=== PATIENT | male | born 1950 | race African-American/Black ===

== ENCOUNTER 2021-02-08 06:47 | Observation (INO) | payer OTHER ==
[2021-02-08 08:30] VITALS: BMI 25.0
[2021-02-08] MEDS ORDERED: metoPROLOL SUCCINATE 25 MG TAB.SR.24H (FP) PO SCH (10:00)
[2021-02-08 10:55] LABS: INR 1.27 (0.83-1.09); PROTHROMBIN TIME (PATIENT) 14.9 SEC (9.7-13.0)
[2021-02-08 10:58] LABS: ACTIVATED PTT 32.8 SECONDS (25.2-36.5)
[2021-02-08 11:07] LABS: CHLORIDE 110 mmol/L (98-107); HEMATOCRIT 34.1 % (35.4-49); MCH 28.6 pg (25.7-33.7); MCHC 32.2 g/dl (32.0-35.9); MEAN PLT VOLUME 9.9 fl (7.5-11.1); PLATELET COUNT 178 10^3/uL (134-434); RBC 3.83 M/mm3 (4.00-5.60); RDW 14.5 % (11.9-15.9); SODIUM 141 mmol/L (136-145); WHITE BLOOD COUNT 3.2 K/mm3 (4.0-10.0)
[2021-02-08 11:09] LABS: ALBUMIN 3.5 g/dl (3.4-5.0); ANION GAP 7 MMOL/L (8-16); BLOOD UREA NITROGEN 9.7 mg/dL (7-18); CALCIUM 8.8 mg/dL (8.5-10.1); CO2 24 mmol/L (21-32); GLUCOSE,RANDOM 89 mg/dL (74-106)
[2021-02-08 11:10] LABS: MAGNESIUM 2.3 mg/dL (1.8-2.4)
[2021-02-08 11:13] LABS: CREATININE 1.1 mg/dL (0.55-1.3); SGOT/AST 22 U/L (15-37); SGPT/ALT 23 U/L (13-61)
[2021-02-08 11:14] LABS: BILIRUBIN,TOTAL 0.6 mg/dL (0.2-1); TOT PROT 7.7 g/dl (6.4-8.2)
[2021-02-08 11:15] LABS: ALK PHOS 69 U/L (45-117)
[2021-02-08 11:44] LABS: ANISOCYTOSIS 0; MACROCYTOSIS 0; PLATELET ESTIMATE NORMAL
[2021-02-08 12:03] LABS: URINE COLOR RED
[2021-02-08 12:04] LABS: URINE APPEARANCE BLOODY; URINE GLUCOSE (UA) NEGATIVE (NEGATIVE)
[2021-02-08 12:05] LABS: URINE BILIRUBIN 2+ (NEGATIVE); URINE UROBILINOGEN 0.2 mg/dL (0.2-1.0)
[2021-02-08 12:07] LABS: URINE BACTERIA RARE /uL (0-1359); URINE PROTEIN 2+ (NEGATIVE); URINE RBC >200 /uL (0-23.9)
[2021-02-08] MEDS ORDERED: metoPROLOL SUCCINATE 25 MG TAB.SR.24H (FP) ONE (14:49)
[2021-02-08] MEDS: metoPROLOL SUCCINATE 25 MG TAB.SR.24H (FP) PO SCH (14:54)
[2021-02-08] MEDS ORDERED: ATORVASTATIN CA 20 MG TABLET (FP) ONE (21:25)
[2021-02-08] MEDS: ATORVASTATIN CA 20 MG TABLET (FP) PO SCH (21:38)
[2021-02-08] MEDS ORDERED: APIXABAN 5 MG TABLET PO SCH (22:00)
[2021-02-09] MEDS ORDERED: TAMSULOSIN HCL 0.4 MG CAP PO SCH (08:30)
[2021-02-09] MEDS ORDERED: TAMSULOSIN HCL 0.4 MG CAP ONE (08:37)
[2021-02-09] MEDS ORDERED: amLODIPine BESYLATE 5 MG TABLET (FP) ONE (09:32)
[2021-02-09] MEDS ORDERED: PANTOPRAZOLE 40 MG TABLET ONE (09:32)
[2021-02-09] MEDS ORDERED: metoPROLOL SUCCINATE 25 MG TAB.SR.24H (FP) ONE (09:37)
[2021-02-09] MEDS: metoPROLOL SUCCINATE 25 MG TAB.SR.24H (FP) PO SCH (09:39)
[2021-02-09] MEDS ORDERED: amLODIPine BESYLATE 5 MG TABLET (FP) PO SCH (10:00)
[2021-02-09] MEDS ORDERED: PANTOPRAZOLE 40 MG TABLET PO SCH (10:00)
[2021-02-09 15:33] LABS: HEMATOCRIT 34.5 % (35.4-49); HEMOGLOBIN 11.1 GM/dL (11.7-16.9); MCHC 32.3 g/dl (32.0-35.9); MEAN CELL VOLUME 89.7 fl (80-96); MEAN PLT VOLUME 9.5 fl (7.5-11.1); PLATELET COUNT 211 10^3/uL (134-434); RBC 3.85 M/mm3 (4.00-5.60); RDW 14.8 % (11.9-15.9); WHITE BLOOD COUNT 2.4 K/mm3 (4.0-10.0)
[2021-02-09 15:54] LABS: BLOOD UREA NITROGEN 11.8 mg/dL (7-18); CALCIUM 8.8 mg/dL (8.5-10.1)
[2021-02-09 15:55] LABS: ANISOCYTOSIS 1+; MACROCYTOSIS 0; PLATELET ESTIMATE NORMAL
[2021-02-09 15:58] LABS: CREATININE 1.3 mg/dL (0.55-1.3)
[2021-02-09 16:46] VITALS: TEMP 98.4
[2021-02-09] MEDS ORDERED: ATORVASTATIN CA 20 MG TABLET (FP) ONE (21:18)
[2021-02-09] MEDS: ATORVASTATIN CA 20 MG TABLET (FP) PO SCH (21:24)
[2021-02-10 06:53] VITALS: BP 125/80; PULSE 66
[2021-02-10] MEDS ORDERED: amLODIPine BESYLATE 5 MG TABLET (FP) ONE (11:33)
[2021-02-10] MEDS ORDERED: TAMSULOSIN HCL 0.4 MG CAP ONE (11:33)
[2021-02-10] MEDS ORDERED: PANTOPRAZOLE 40 MG TABLET ONE (11:33)
== END 2021-02-10 14:00 | disposition home or self-care (01) ==
LOC: JER 06:47 → UNDOADMOB 11:50 → JERBED 11:50 → INTOOBSV 14:13 → OBSVTOIN 14:13 → JERBED 02-10 08:51
PROVIDERS: ATTEND Family Medicine
DX: R31.0 Gross hematuria (principal); I48.0 Paroxysmal atrial fibrillation; N40.0 Benign prostatic hyperplasia without lower urinary tract symptoms; Z79.01 Long term (current) use of anticoagulants; I10 Essential (primary) hypertension; E78.5 Hyperlipidemia, unspecified
CPT/HCPCS: 36415; 71046-TC-FY; 78452-TC; 80048; 80053; 81003; 82550; 82553; 83735; 84484; 85025; 85610; 85730; 87086; 93005; 93010; 93017; 99285-25; A9502; C9803; G0378; U0003; U0005

== ENCOUNTER 2022-03-14 09:18 | Observation (INO) | payer OTHER ==
[2022-03-14 11:20] LABS: HEMATOCRIT 40.3 % (35.4-49); HEMOGLOBIN 14.3 GM/dL (11.7-16.9); MCHC 35.4 g/dl (32.0-35.9); MEAN CELL VOLUME 93.3 fl (80-96); MEAN PLT VOLUME 9.1 fl (7.5-11.1); PLATELET COUNT 243 10^3/uL (134-434); RBC 4.32 M/mm3 (4.00-5.60); RDW 13.5 % (11.9-15.9); WHITE BLOOD COUNT 2.1 K/mm3 (4.0-10.0)
[2022-03-14 11:30] LABS: INR 1.14 (0.83-1.09); PROTHROMBIN TIME (PATIENT) 13.2 SEC (9.7-13.0)
[2022-03-14 11:31] LABS: CHLORIDE 107 mmol/L (98-107); SODIUM 142 mmol/L (136-145)
[2022-03-14 11:33] LABS: CALCIUM 8.9 mg/dL (8.5-10.1)
[2022-03-14 11:34] LABS: ALBUMIN 3.6 g/dl (3.4-5.0); ANION GAP 8 MMOL/L (8-16); BLOOD UREA NITROGEN 13.4 mg/dL (7-18); CO2 27 mmol/L (21-32); GLUCOSE,RANDOM 109 mg/dL (74-106)
[2022-03-14 11:37] LABS: SGOT/AST 25 U/L (15-37); SGPT/ALT 31 U/L (13-61)
[2022-03-14 11:38] LABS: BILIRUBIN,TOTAL 0.4 mg/dL (0.2-1); TOT PROT 7.6 g/dl (6.4-8.2)
[2022-03-14 11:40] LABS: ALK PHOS 65 U/L (45-117)
[2022-03-14 11:42] LABS: N-TERMINAL BNP 53.3 pg/ml (5-125)
[2022-03-14 12:30] LABS: ANISOCYTOSIS 0; HELMET CELLS 0; HOWELL-JOLLY BODIES 0; MACROCYTOSIS 0; OVALOCYTE 0; ROULEAU 0; SICKELED CELLS 0; TARGET CELLS 0; TEAR DROP CELLS 0; TOXIC GRANULATION 0
[2022-03-14 13:38] LABS: PH,URINE 6.5 (5.0-8.0); URINE APPEARANCE CLEAR; URINE BILIRUBIN NEGATIVE (NEGATIVE); URINE COLOR YELLOW; URINE GLUCOSE (UA) NEGATIVE (NEGATIVE); URINE KETONE NEGATIVE (NEGATIVE); URINE LEUK ESTERASE NEGATIVE (NEGATIVE); URINE NITRITE NEGATIVE (NEGATIVE); URINE PROTEIN NEGATIVE (NEGATIVE); URINE UROBILINOGEN 0.2 mg/dL (0.2-1.0)
[2022-03-14] MEDS ORDERED: NITROGLYCERIN SUBLINGUAL 1/150 0.4 MG TAB SL PRN (14:46)
[2022-03-14] MEDS ORDERED: ASPIRIN COATED 81 MG TABLET.EC ONE (18:26)
[2022-03-14] MEDS: ASPIRIN COATED 81 MG TABLET.EC PO SCH (18:32)
[2022-03-14] MEDS: metoPROLOL SUCCINATE 25 MG TAB.SR.24H (FP) PO SCH (18:33)
[2022-03-14] MEDS ORDERED: HEPARIN NA (PORCINE) 5,000 UNITS/ML 1ML VIAL ONE (21:53)
[2022-03-14] MEDS ORDERED: ATORVASTATIN CA 10 MG TABLET (FP) ONE (21:53)
[2022-03-14] MEDS: ATORVASTATIN CA 10 MG TABLET (FP) PO SCH (22:00)
[2022-03-14] MEDS: HEPARIN NA (PORCINE) 5,000 UNITS/ML 1ML VIAL SQ SCH (22:00)
[2022-03-14 22:37] VITALS: BMI 24.8
[2022-03-15 08:07] LABS: HEMATOCRIT 38.7 % (35.4-49); HEMOGLOBIN 13.7 GM/dL (11.7-16.9); MCH 32.9 pg (25.7-33.7); MCHC 35.3 g/dl (32.0-35.9); MEAN CELL VOLUME 93.3 fl (80-96); MEAN PLT VOLUME 9.6 fl (7.5-11.1); PLATELET COUNT 231 10^3/uL (134-434); RBC 4.15 M/mm3 (4.00-5.60); RDW 13.4 % (11.9-15.9)
[2022-03-15 08:24] LABS: CALCIUM 8.7 mg/dL (8.5-10.1)
[2022-03-15 08:25] LABS: BLOOD UREA NITROGEN 15.3 mg/dL (7-18)
[2022-03-15] MEDS: ASPIRIN COATED 81 MG TABLET.EC PO SCH (09:23)
[2022-03-15] MEDS: metoPROLOL SUCCINATE 25 MG TAB.SR.24H (FP) PO SCH (09:23)
[2022-03-15] MEDS: amLODIPine BESYLATE 10 MG TABLET (FP) PO SCH (09:23)
[2022-03-15] MEDS: HEPARIN NA (PORCINE) 5,000 UNITS/ML 1ML VIAL SQ SCH ×2 (09:23→21:43)
[2022-03-15 09:25] LABS: ANISOCYTOSIS 0; HELMET CELLS 0; HOWELL-JOLLY BODIES 0; MACROCYTOSIS 0; OVALOCYTE 0; ROULEAU 0; SICKELED CELLS 0; TARGET CELLS 0; TEAR DROP CELLS 0; TOXIC GRANULATION 0
[2022-03-15] MEDS: ATORVASTATIN CA 10 MG TABLET (FP) PO SCH (21:43)
[2022-03-16] MEDS: ASPIRIN COATED 81 MG TABLET.EC PO SCH (13:32)
[2022-03-16] MEDS: amLODIPine BESYLATE 10 MG TABLET (FP) PO SCH (13:32)
[2022-03-16] MEDS: HEPARIN NA (PORCINE) 5,000 UNITS/ML 1ML VIAL SQ SCH ×2 (13:32→21:43)
[2022-03-16] MEDS ORDERED: ASPIRIN 81 MG CHEWABLE TABLETS PO SCH (14:45)
[2022-03-16] MEDS: PANTOPRAZOLE 20 MG TABLET PO SCH (15:09)
[2022-03-16] MEDS: FINASTERIDE 5 MG TABLET (FP) PO SCH (15:09)
[2022-03-16] MEDS: ESCITALOPRAM OXALATE 10 MG TABLET PO SCH (15:09)
[2022-03-16] MEDS: FERROUS SO4 325 MG TABLET (FP) PO SCH ×2 (15:09→21:43)
[2022-03-16 18:16] VITALS: RESP 20
[2022-03-16] MEDS: ATORVASTATIN CA 10 MG TABLET (FP) PO SCH (21:44)
[2022-03-17] MEDS: FERROUS SO4 325 MG TABLET (FP) PO SCH (06:42)
[2022-03-17] MEDS: ASPIRIN 81 MG CHEWABLE TABLETS PO SCH ×2 (06:42→09:17)
[2022-03-17 07:31] LABS: HEMOGLOBIN 13.8 GM/dL (11.7-16.9); MCH 32.1 pg (25.7-33.7); MCHC 34.6 g/dl (32.0-35.9); MEAN CELL VOLUME 92.8 fl (80-96); MEAN PLT VOLUME 9.9 fl (7.5-11.1); PLATELET COUNT 245 10^3/uL (134-434); RBC 4.31 M/mm3 (4.00-5.60); RDW 13.3 % (11.9-15.9)
[2022-03-17 07:42] LABS: WHITE BLOOD COUNT 1.9 K/mm3 (4.0-10.0)
[2022-03-17 07:49] LABS: CALCIUM 8.9 mg/dL (8.5-10.1)
[2022-03-17 07:50] LABS: MAGNESIUM 1.9 mg/dL (1.8-2.4)
[2022-03-17 07:53] LABS: PHOSPHOROUS 3.5 mg/dL (2.5-4.9)
[2022-03-17 08:59] VITALS: BP 133/69; PULSE 73; TEMP 97.8
[2022-03-17 09:00] LABS: ANISOCYTOSIS 0; MACROCYTOSIS 1+
[2022-03-17] MEDS: ESCITALOPRAM OXALATE 10 MG TABLET PO SCH (09:17)
[2022-03-17] MEDS: FINASTERIDE 5 MG TABLET (FP) PO SCH (09:17)
[2022-03-17] MEDS: metoPROLOL SUCCINATE 25 MG TAB.SR.24H (FP) PO SCH (09:17)
[2022-03-17] MEDS: amLODIPine BESYLATE 10 MG TABLET (FP) PO SCH (09:18)
[2022-03-17] MEDS: HEPARIN NA (PORCINE) 5,000 UNITS/ML 1ML VIAL SQ SCH (09:18)
[2022-03-17] MEDS: PANTOPRAZOLE 20 MG TABLET PO SCH (09:18)
== END 2022-03-17 12:31 | disposition home or self-care (01) ==
LOC: JER 09:18 → INTOOBSV 10:05 → UNDOADMOB 10:05 → JERBED 10:05 → J4W 22:19
PROVIDERS: ADMIT Internal Medicine; ATTEND Internal Medicine
PROC: 3E023GC Introduction of Other Therapeutic Substance into Muscle, Percutaneous Approach (ICD-10-PCS; principal; 2022-03-14)
DX: I48.0 Paroxysmal atrial fibrillation (principal); I10 Essential (primary) hypertension; Z85.46 Personal history of malignant neoplasm of prostate; N40.0 Benign prostatic hyperplasia without lower urinary tract symptoms; E78.5 Hyperlipidemia, unspecified; I31.39 Other pericardial effusion (noninflammatory)
CPT/HCPCS: 0241U-QW; 36415; 71045-TC-FY; 78452-TC; 80048; 80053; 80061; 81003; 82550; 83735; 83880; 84100; 84443; 84484; 85025; 85610; 85730; 87086; 93017; 93306-TC; 96372; 99285-25; A9502; G0378; J1644

== ENCOUNTER 2022-06-12 13:47 | Emergency (ER) | payer OTHER ==
[2022-06-12 14:07] VITALS: BP 96/70; PULSE 78; RESP 18; TEMP 97.6; BMI 25.0
== END 2022-06-12 15:45 | disposition home or self-care (01) ==
LOC: JER 13:47
DX: M79.652 Pain in left thigh (principal)
CPT/HCPCS: 99283-25